=== PATIENT | male | born 1995 | race Hispanic/Latino ===

== ENCOUNTER 2017-08-14 10:13 | Emergency (ER) | payer OTHER ==
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
== END 2017-08-14 11:43 | disposition home or self-care (01) ==
LOC: ERS 10:13
DX: S02.2XXA Fracture of nasal bones, initial encounter for closed fracture (principal); S06.9X1A Unspecified intracranial injury with loss of consciousness of 30 minutes or less, initial encounter; F31.9 Bipolar disorder, unspecified; Z87.891 Personal history of nicotine dependence; Z79.899 Other long term (current) drug therapy; Y04.0XXA Assault by unarmed brawl or fight, initial encounter; Y92.149 Unspecified place in prison as the place of occurrence of the external cause
CPT/HCPCS: 70450; 70486

== ENCOUNTER 2018-07-31 18:03 | Emergency (ER) | payer OTHER, SELFPAY ==
[2018-07-31] MEDS ORDERED: Lidocaine 1% w/Epinephrine 1:100K 20 ML VIAL ONE (18:38)
== END 2018-07-31 19:29 | disposition home or self-care (01) ==
LOC: ERS 18:03
DX: L02.412 Cutaneous abscess of left axilla (principal); F31.9 Bipolar disorder, unspecified; Z87.891 Personal history of nicotine dependence
CPT/HCPCS: 10061; J2001

== ENCOUNTER 2019-08-15 18:53 | Emergency (ER) | payer SELFPAY | END 2019-08-15 20:04 | disposition home or self-care (01) | LOC: ERS 18:53 | DX: Z11.3 Encounter for screening for infections with a predominantly sexual mode of transmission (principal); F31.9 Bipolar disorder, unspecified | CPT/HCPCS: 99281 ==

== ENCOUNTER 2019-10-17 20:50 | Emergency (ER) | payer OTHER, SELFPAY ==
[2019-10-17] MEDS ORDERED: AMOXicillin 250 MG CAP ONE (21:29)
[2019-10-17] MEDS ORDERED: Ibuprofen 800 MG TAB ONE (21:29)
== END 2019-10-17 22:56 ==
LOC: EEVIPCON 20:50 → ERS 20:50
DX: H66.91 Otitis media, unspecified, right ear (principal); H72.91 Unspecified perforation of tympanic membrane, right ear
CPT/HCPCS: 99283